=== PATIENT | male | born 1980 | race African-American/Black ===

== ENCOUNTER 2022-11-06 13:46 | Inpatient (IN) | payer OTHER ==
[2022-11-06 14:50] VITALS: BMI 28.1
[2022-11-06] MEDS ORDERED: BISMUTH SUBSALICYLATE 524 MG/30 ML PO PRN (17:29)
[2022-11-06] MEDS ORDERED: ACETAMINOPHEN 325 MG TABLET (FP) PO PRN (17:29)
[2022-11-06] MEDS ORDERED: IBUPROFEN 400 MG TABLET (FP) PO PRN (17:29)
[2022-11-06] MEDS ORDERED: BENZONATATE 200 MG CAPSULE PO PRN (17:29)
[2022-11-06] MEDS ORDERED: IBUPROFEN 600 MG TABLET (FP) PO PRN (17:29)
[2022-11-06] MEDS ORDERED: MAG HYDROX/AL HYDROX/SIMETH 30 ML UNIT-DOSE CUP PO PRN (17:29)
[2022-11-06] MEDS ORDERED: DICYCLOMINE HCL 10 MG CAPSULE PO PRN (17:29)
[2022-11-06] MEDS ORDERED: P-EPHED 60MG/TRIPROLIDI 2.5MG TABLET PO PRN (17:29)
[2022-11-06] MEDS ORDERED: BENZOCAINE/MENTHOL (CHLORASEPTIC ) LOZENGE MM PRN (17:29)
[2022-11-06] MEDS ORDERED: POLYETHYLENE GLYCOL (HEALTHYLAX) 3350 17 GM PACKET PO PRN (17:29)
[2022-11-06] MEDS ORDERED: guaiFENesin 600 MG TABLET.ER (FP) PO PRN (17:29)
[2022-11-06] MEDS ORDERED: NICOTINE POLACRILEX 2 MG GUM BUC PRN (17:29)
[2022-11-06] MEDS ORDERED: LOPERAMIDE HCL 2 MG CAPSULE PO PRN (17:29)
[2022-11-06] MEDS ORDERED: ONDANSETRON *ODT* 4 MG TABLET SL PRN (17:29)
[2022-11-06] MEDS ORDERED: MAGNESIUM HYDROX 2400MG/30ML ORAL SUSPENSION 30 ML CUP PO PRN (17:29)
[2022-11-06] MEDS ORDERED: cloNIDine HCL 0.1 MG TABLET PO ONE (18:29)
[2022-11-06] MEDS ORDERED: cloNIDine HCL 0.1 MG TABLET ONE (18:31)
[2022-11-06] MEDS: MELATONIN 5 MG TABLETS PO SCH (22:10)
[2022-11-06] MEDS: METHOCARBAMOL 500 MG TABLET PO PRN (22:10)
[2022-11-06] MEDS: hydrOXYzine PAMOATE 25 MG CAPSULE (FP) PO PRN (22:10)
[2022-11-06] MEDS: THIAMINE HCL 100 MG TABLET (FP) PO SCH (22:10)
[2022-11-07] MEDS ORDERED: chlordiazePOXIDE HCL 25 MG CAPSULE PO PRN (08:12)
[2022-11-07] MEDS: METHOCARBAMOL 500 MG TABLET PO PRN (10:07)
[2022-11-07] MEDS: PRENATAL VITAMINS W/ FOLIC ACID TABLET (FP) PO SCH (10:07)
[2022-11-07] MEDS: cloNIDine HCL 0.1 MG TABLET PO PRN ×2 (10:07→22:03)
[2022-11-07] MEDS: chlordiazePOXIDE HCL 25 MG CAPSULE PO SCH ×3 (10:07→22:03)
[2022-11-07] MEDS: hydrOXYzine PAMOATE 25 MG CAPSULE (FP) PO PRN (10:07)
[2022-11-07 11:40] LABS: POTASSIUM 3.5 mmol/L (3.5-5.1)
[2022-11-07 11:41] LABS: HEMOGLOBIN 14.3 GM/dL (11.7-16.9); MCH 31.5 pg (25.7-33.7); MCHC 33.2 g/dl (32.0-35.9); MEAN PLT VOLUME 9.4 fl (7.5-11.1); PLATELET COUNT 175 10^3/uL (134-434); RBC 4.53 M/mm3 (4.00-5.60); RDW 14.5 % (11.9-15.9); WHITE BLOOD COUNT 5.9 K/mm3 (4.0-10.0)
[2022-11-07 12:20] LABS: ALBUMIN 3.4 g/dl (3.4-5.0); BLOOD UREA NITROGEN 12.9 mg/dL (7-18); CALCIUM 9.1 mg/dL (8.5-10.1)
[2022-11-07 12:22] LABS: CREATININE 0.8 mg/dL (0.55-1.3)
[2022-11-07 12:24] LABS: BILIRUBIN,TOTAL 0.8 mg/dL (0.2-1); TOT PROT 6.7 g/dl (6.4-8.2)
[2022-11-07] MEDS: THIAMINE HCL 100 MG TABLET (FP) PO SCH (22:03)
[2022-11-07] MEDS: MELATONIN 5 MG TABLETS PO SCH (22:04)
[2022-11-08] MEDS: chlordiazePOXIDE HCL 25 MG CAPSULE PO SCH ×4 (05:26→22:27)
[2022-11-08] MEDS: PRENATAL VITAMINS W/ FOLIC ACID TABLET (FP) PO SCH (10:16)
[2022-11-08] MEDS: METHOCARBAMOL 500 MG TABLET PO PRN (10:16)
[2022-11-08] MEDS: hydrOXYzine PAMOATE 25 MG CAPSULE (FP) PO PRN ×2 (10:16→22:30)
[2022-11-08] MEDS: THIAMINE HCL 100 MG TABLET (FP) PO SCH (22:27)
[2022-11-08] MEDS: MELATONIN 5 MG TABLETS PO SCH (22:27)
[2022-11-08] MEDS: cloNIDine HCL 0.1 MG TABLET PO PRN (22:27)
[2022-11-09] MEDS: chlordiazePOXIDE HCL 25 MG CAPSULE PO SCH ×4 (05:59→22:31)
[2022-11-09] MEDS: PRENATAL VITAMINS W/ FOLIC ACID TABLET (FP) PO SCH (10:32)
[2022-11-09] MEDS: cloNIDine HCL 0.1 MG TABLET PO PRN (21:31)
[2022-11-09] MEDS: hydrOXYzine PAMOATE 25 MG CAPSULE (FP) PO PRN (22:31)
[2022-11-09] MEDS: THIAMINE HCL 100 MG TABLET (FP) PO SCH (22:31)
[2022-11-09] MEDS: MELATONIN 5 MG TABLETS PO SCH (22:33)
[2022-11-10] MEDS: chlordiazePOXIDE HCL 10 MG CAPSULE PO SCH ×4 (05:16→22:30)
[2022-11-10] MEDS: chlordiazePOXIDE HCL 10 MG CAPSULE PO PRN ×2 (06:06→12:42)
[2022-11-10] MEDS: PRENATAL VITAMINS W/ FOLIC ACID TABLET (FP) PO SCH (10:52)
[2022-11-10] MEDS: METHOCARBAMOL 500 MG TABLET PO PRN (22:30)
[2022-11-10] MEDS: THIAMINE HCL 100 MG TABLET (FP) PO SCH (22:30)
[2022-11-10] MEDS: MELATONIN 5 MG TABLETS PO SCH (22:30)
[2022-11-11] MEDS: chlordiazePOXIDE HCL 10 MG CAPSULE PO SCH ×2 (05:53→17:32)
[2022-11-11] MEDS: PRENATAL VITAMINS W/ FOLIC ACID TABLET (FP) PO SCH (10:44)
[2022-11-11] MEDS: cloNIDine HCL 0.1 MG TABLET PO PRN (14:33)
[2022-11-11] MEDS: MELATONIN 5 MG TABLETS PO SCH (23:00)
[2022-11-11] MEDS: THIAMINE HCL 100 MG TABLET (FP) PO SCH (23:00)
[2022-11-12] MEDS: hydrOXYzine PAMOATE 25 MG CAPSULE (FP) PO PRN (00:21)
[2022-11-12] MEDS ORDERED: chlordiazePOXIDE HCL 10 MG CAPSULE PO ONE (05:00)
[2022-11-12 06:13] VITALS: BP 126/78; PULSE 88; RESP 16; TEMP 97.5
[2022-11-12] MEDS: PRENATAL VITAMINS W/ FOLIC ACID TABLET (FP) PO SCH (10:35)
== END 2022-11-12 09:15 | disposition home or self-care (01) | DRG 775 ==
LOC: YASAS 13:46 → Y6N 18:35
PROVIDERS: ADMIT Allergy & Immunology; ATTEND Allergy & Immunology
PROC: HZ2ZZZZ Detoxification Services for Substance Abuse Treatment (ICD-10-PCS; principal; 2022-11-06)
DX: F10.230 Alcohol dependence with withdrawal, uncomplicated (principal); F17.210 Nicotine dependence, cigarettes, uncomplicated
CPT/HCPCS: 36415; 80053; 85027; 86780; 87635

== ENCOUNTER 2023-02-11 12:36 | Inpatient (IN) | payer OTHER ==
[2023-02-11 12:56] VITALS: RESP 18; BMI 30.4
[2023-02-11] MEDS ORDERED: LOPERAMIDE HCL 2 MG CAPSULE PO PRN (14:03)
[2023-02-11] MEDS ORDERED: BENZOCAINE/MENTHOL (CHLORASEPTIC ) LOZENGE MM PRN (14:03)
[2023-02-11] MEDS ORDERED: MAGNESIUM HYDROX 2400MG/30ML ORAL SUSPENSION 30 ML CUP PO PRN (14:03)
[2023-02-11] MEDS ORDERED: COLLOIDAL OATMEAL 1 BAR EACH TP PRN (14:03)
[2023-02-11] MEDS ORDERED: NALOXONE HCL (KLOXXADO) 8 MG SPRAY NS PRN (14:03)
[2023-02-11] MEDS ORDERED: NALOXONE HCL 0.4 MG/ML VIAL IM PRN (14:03)
[2023-02-11] MEDS ORDERED: IBUPROFEN 600 MG TABLET (FP) PO PRN (14:03)
[2023-02-11] MEDS ORDERED: guaiFENesin 600 MG TABLET.ER (FP) PO PRN (14:03)
[2023-02-11] MEDS ORDERED: BENZONATATE 200 MG CAPSULE PO PRN (14:03)
[2023-02-11] MEDS ORDERED: NICOTINE POLACRILEX 2 MG GUM BUC PRN (14:03)
[2023-02-11] MEDS ORDERED: MAG HYDROX/AL HYDROX/SIMETH 30 ML UNIT-DOSE CUP PO PRN (14:03)
[2023-02-11] MEDS ORDERED: POLYETHYLENE GLYCOL (HEALTHYLAX) 3350 17 GM PACKET PO PRN (14:03)
[2023-02-11] MEDS ORDERED: IBUPROFEN 400 MG TABLET (FP) PO PRN (14:03)
[2023-02-11] MEDS ORDERED: ACETAMINOPHEN 325 MG TABLET (FP) PO PRN (14:03)
[2023-02-11] MEDS: MELATONIN 5 MG TABLETS PO SCH (21:39)
[2023-02-11] MEDS: THIAMINE HCL 100 MG TABLET (FP) PO SCH (21:40)
[2023-02-12] MEDS: NICOTINE 14 MG/24 HOURS TOPICAL PATCH TD SCH (10:21)
[2023-02-12] MEDS: PRENATAL VITAMINS W/ FOLIC ACID TABLET (FP) PO SCH (10:21)
[2023-02-12 10:52] LABS: HEMATOCRIT 43.4 % (35.4-49); HEMOGLOBIN 14.4 GM/dL (11.7-16.9); MCH 31.7 pg (25.7-33.7); MCHC 33.2 g/dl (32.0-35.9); MEAN CELL VOLUME 95.4 fl (80-96); PLATELET COUNT 225 10^3/uL (134-434); RBC 4.55 M/mm3 (4.00-5.60); RDW 13.3 % (11.9-15.9); WHITE BLOOD COUNT 6.5 K/mm3 (4.0-10.0)
[2023-02-12 10:55] LABS: CHLORIDE 104 mmol/L (98-107); POTASSIUM 4.5 mmol/L (3.5-5.1); SODIUM 140 mmol/L (136-145)
[2023-02-12 11:01] LABS: PH,URINE 6.5 (5.0-8.0); URINE APPEARANCE CLEAR; URINE BILIRUBIN NEGATIVE (NEGATIVE); URINE COLOR YELLOW; URINE GLUCOSE (UA) NEGATIVE (NEGATIVE); URINE KETONE NEGATIVE (NEGATIVE); URINE LEUK ESTERASE NEGATIVE (NEGATIVE); URINE NITRITE NEGATIVE (NEGATIVE); URINE PROTEIN NEGATIVE (NEGATIVE); URINE UROBILINOGEN 0.2 mg/dL (0.2-1.0)
[2023-02-12 11:10] LABS: CALCIUM 9.4 mg/dL (8.5-10.1)
[2023-02-12 11:11] LABS: ALBUMIN 3.4 g/dl (3.4-5.0); ANION GAP 8 mmol/L (4-13); BLOOD UREA NITROGEN 17.3 mg/dL (7-18); CO2 28 mmol/L (21-32); GLUCOSE,RANDOM 104 mg/dL (74-106)
[2023-02-12 11:14] LABS: SGOT/AST 18 U/L (15-37); SGPT/ALT 37 U/L (13-61)
[2023-02-12 11:15] LABS: CREATININE 0.8 mg/dL (0.55-1.3)
[2023-02-12 11:16] LABS: BILIRUBIN,TOTAL 0.3 mg/dL (0.2-1); TOT PROT 6.9 g/dl (6.4-8.2)
[2023-02-12 11:17] LABS: ALK PHOS 75 U/L (45-117)
[2023-02-12] MEDS: hydrOXYzine PAMOATE 25 MG CAPSULE (FP) PO PRN (11:29)
[2023-02-12] MEDS: MELATONIN 5 MG TABLETS PO SCH (21:39)
[2023-02-12] MEDS: traZODone HCL 100 MG TABLET (FP) PO SCH (21:39)
[2023-02-12] MEDS: THIAMINE HCL 100 MG TABLET (FP) PO SCH (21:40)
[2023-02-13] MEDS: PRENATAL VITAMINS W/ FOLIC ACID TABLET (FP) PO SCH (10:03)
[2023-02-13] MEDS: NICOTINE 14 MG/24 HOURS TOPICAL PATCH TD SCH (10:03)
[2023-02-13] MEDS: hydrOXYzine PAMOATE 25 MG CAPSULE (FP) PO PRN (11:18)
[2023-02-13] MEDS: traZODone HCL 100 MG TABLET (FP) PO SCH (21:22)
[2023-02-13] MEDS: MELATONIN 5 MG TABLETS PO SCH (21:22)
[2023-02-13] MEDS: THIAMINE HCL 100 MG TABLET (FP) PO SCH (21:22)
[2023-02-14] MEDS: PRENATAL VITAMINS W/ FOLIC ACID TABLET (FP) PO SCH (10:05)
[2023-02-14] MEDS: hydrOXYzine PAMOATE 25 MG CAPSULE (FP) PO PRN (10:06)
[2023-02-14] MEDS: traZODone HCL 100 MG TABLET (FP) PO SCH (21:15)
[2023-02-14] MEDS: THIAMINE HCL 100 MG TABLET (FP) PO SCH (21:15)
[2023-02-14] MEDS: MELATONIN 5 MG TABLETS PO SCH (21:15)
[2023-02-15] MEDS: PRENATAL VITAMINS W/ FOLIC ACID TABLET (FP) PO SCH (10:00)
[2023-02-15] MEDS: hydrOXYzine PAMOATE 25 MG CAPSULE (FP) PO PRN ×2 (12:14→21:39)
[2023-02-15] MEDS: MELATONIN 5 MG TABLETS PO SCH (21:38)
[2023-02-15] MEDS: THIAMINE HCL 100 MG TABLET (FP) PO SCH (21:38)
[2023-02-15] MEDS: traZODone HCL 100 MG TABLET (FP) PO SCH (21:38)
[2023-02-16] MEDS: PRENATAL VITAMINS W/ FOLIC ACID TABLET (FP) PO SCH (10:28)
[2023-02-16] MEDS: traZODone HCL 100 MG TABLET (FP) PO SCH (21:47)
[2023-02-16] MEDS: THIAMINE HCL 100 MG TABLET (FP) PO SCH (21:47)
[2023-02-16] MEDS: MELATONIN 5 MG TABLETS PO SCH (21:47)
[2023-02-16] MEDS: hydrOXYzine PAMOATE 25 MG CAPSULE (FP) PO PRN (21:47)
[2023-02-17] MEDS: PRENATAL VITAMINS W/ FOLIC ACID TABLET (FP) PO SCH (10:37)
[2023-02-17] MEDS: THIAMINE HCL 100 MG TABLET (FP) PO SCH (22:04)
[2023-02-17] MEDS: traZODone HCL 100 MG TABLET (FP) PO SCH (22:04)
[2023-02-17] MEDS: hydrOXYzine PAMOATE 25 MG CAPSULE (FP) PO PRN (22:05)
[2023-02-17] MEDS: MELATONIN 5 MG TABLETS PO SCH (22:05)
[2023-02-18] MEDS: PRENATAL VITAMINS W/ FOLIC ACID TABLET (FP) PO SCH (10:57)
[2023-02-18] MEDS: THIAMINE HCL 100 MG TABLET (FP) PO SCH (21:38)
[2023-02-18] MEDS: traZODone HCL 100 MG TABLET (FP) PO SCH (21:38)
[2023-02-18] MEDS: MELATONIN 5 MG TABLETS PO SCH (21:38)
[2023-02-18] MEDS: hydrOXYzine PAMOATE 25 MG CAPSULE (FP) PO PRN (21:38)
[2023-02-19] MEDS: PRENATAL VITAMINS W/ FOLIC ACID TABLET (FP) PO SCH (09:48)
[2023-02-19] MEDS: traZODone HCL 100 MG TABLET (FP) PO SCH (21:27)
[2023-02-19] MEDS: THIAMINE HCL 100 MG TABLET (FP) PO SCH (21:27)
[2023-02-19] MEDS: SUVOREXANT 10 MG TABLET PO PRN (21:28)
[2023-02-19] MEDS: hydrOXYzine PAMOATE 25 MG CAPSULE (FP) PO PRN (21:29)
[2023-02-20] MEDS: PRENATAL VITAMINS W/ FOLIC ACID TABLET (FP) PO SCH (09:30)
[2023-02-20] MEDS: traZODone HCL 100 MG TABLET (FP) PO SCH (21:32)
[2023-02-20] MEDS: hydrOXYzine PAMOATE 25 MG CAPSULE (FP) PO PRN (21:32)
[2023-02-20] MEDS: THIAMINE HCL 100 MG TABLET (FP) PO SCH (21:32)
[2023-02-20] MEDS: SUVOREXANT 10 MG TABLET PO PRN (21:34)
[2023-02-21] MEDS: PRENATAL VITAMINS W/ FOLIC ACID TABLET (FP) PO SCH (10:22)
[2023-02-21] MEDS: THIAMINE HCL 100 MG TABLET (FP) PO SCH (21:52)
[2023-02-21] MEDS: SUVOREXANT 10 MG TABLET PO PRN (21:52)
[2023-02-21] MEDS: traZODone HCL 100 MG TABLET (FP) PO SCH (21:52)
[2023-02-21] MEDS: hydrOXYzine PAMOATE 25 MG CAPSULE (FP) PO PRN (21:53)
[2023-02-22] MEDS: PRENATAL VITAMINS W/ FOLIC ACID TABLET (FP) PO SCH (09:54)
[2023-02-22] MEDS: traZODone HCL 100 MG TABLET (FP) PO SCH (21:34)
[2023-02-22] MEDS: SUVOREXANT 10 MG TABLET PO PRN (21:34)
[2023-02-22] MEDS: hydrOXYzine PAMOATE 25 MG CAPSULE (FP) PO PRN (21:34)
[2023-02-22] MEDS: THIAMINE HCL 100 MG TABLET (FP) PO SCH (21:34)
[2023-02-23] MEDS: PRENATAL VITAMINS W/ FOLIC ACID TABLET (FP) PO SCH (10:12)
[2023-02-23] MEDS: THIAMINE HCL 100 MG TABLET (FP) PO SCH (21:35)
[2023-02-23] MEDS: traZODone HCL 100 MG TABLET (FP) PO SCH (21:35)
[2023-02-23] MEDS: hydrOXYzine PAMOATE 25 MG CAPSULE (FP) PO PRN (21:37)
[2023-02-23] MEDS: SUVOREXANT 10 MG TABLET PO PRN (21:37)
[2023-02-24] MEDS: PRENATAL VITAMINS W/ FOLIC ACID TABLET (FP) PO SCH (10:17)
[2023-02-24] MEDS: hydrOXYzine PAMOATE 25 MG CAPSULE (FP) PO PRN (21:30)
[2023-02-24] MEDS: traZODone HCL 100 MG TABLET (FP) PO SCH (21:30)
[2023-02-24] MEDS: THIAMINE HCL 100 MG TABLET (FP) PO SCH (21:30)
[2023-02-24] MEDS: SUVOREXANT 10 MG TABLET PO PRN (21:31)
[2023-02-25] MEDS: PRENATAL VITAMINS W/ FOLIC ACID TABLET (FP) PO SCH (10:01)
[2023-02-25] MEDS: hydrOXYzine PAMOATE 25 MG CAPSULE (FP) PO PRN (21:24)
[2023-02-25] MEDS: THIAMINE HCL 100 MG TABLET (FP) PO SCH (21:24)
[2023-02-25] MEDS: traZODone HCL 100 MG TABLET (FP) PO SCH (21:24)
[2023-02-25] MEDS: SUVOREXANT 10 MG TABLET PO PRN (21:25)
[2023-02-26] MEDS: PRENATAL VITAMINS W/ FOLIC ACID TABLET (FP) PO SCH (09:42)
[2023-02-26] MEDS: hydrOXYzine PAMOATE 25 MG CAPSULE (FP) PO PRN ×2 (09:43→21:33)
[2023-02-26] MEDS: traZODone HCL 100 MG TABLET (FP) PO SCH (21:33)
[2023-02-26] MEDS: THIAMINE HCL 100 MG TABLET (FP) PO SCH (21:33)
[2023-02-26] MEDS: SUVOREXANT 10 MG TABLET PO PRN (21:34)
[2023-02-27 07:05] VITALS: BP 129/92; PULSE 80; TEMP 97.3
== END 2023-02-27 08:57 | disposition home or self-care (01) | DRG 772 ==
LOC: YASAS 12:36 → Y5N 16:12
PROVIDERS: ADMIT Allergy & Immunology; ATTEND Psychiatry & Neurology Pain Medicine
PROC: HZ42ZZZ Group Counseling for Substance Abuse Treatment, Cognitive-Behavioral (ICD-10-PCS; principal; 2023-02-11)
DX: F10.20 Alcohol dependence, uncomplicated (principal); F15.20 Other stimulant dependence, uncomplicated; F17.210 Nicotine dependence, cigarettes, uncomplicated; F31.9 Bipolar disorder, unspecified; F19.282 Other psychoactive substance dependence with psychoactive substance-induced sleep disorder; F19.24 Other psychoactive substance dependence with psychoactive substance-induced mood disorder; F41.9 Anxiety disorder, unspecified; F43.10 Post-traumatic stress disorder, unspecified; I10 Essential (primary) hypertension
CPT/HCPCS: 36415; 80053; 80307; 81003; 85027; 86780; 87635

== ENCOUNTER 2023-10-16 11:45 | Inpatient (IN) | payer OTHER ==
[2023-10-16 12:13] VITALS: BMI 30.2
[2023-10-16] MEDS ORDERED: MAG HYDROX/AL HYDROX/SIMETH 30 ML UNIT-DOSE CUP PO PRN (12:33)
[2023-10-16] MEDS ORDERED: IBUPROFEN 400 MG TABLET (FP) PO PRN (12:33)
[2023-10-16] MEDS ORDERED: ACETAMINOPHEN 325 MG TABLET (FP) PO PRN (12:33)
[2023-10-16] MEDS ORDERED: NICOTINE POLACRILEX 2 MG LOZENGE BC PRN (12:33)
[2023-10-16] MEDS ORDERED: P-EPHED 60MG/TRIPROLIDI 2.5MG TABLET PO PRN (12:33)
[2023-10-16] MEDS ORDERED: BENZOCAINE/MENTHOL (CHLORASEPTIC ) LOZENGE MM PRN (12:33)
[2023-10-16] MEDS ORDERED: POLYETHYLENE GLYCOL (HEALTHYLAX) 3350 17 GM PACKET PO PRN (12:33)
[2023-10-16] MEDS ORDERED: guaiFENesin 600 MG TABLET.ER (FP) PO PRN (12:33)
[2023-10-16] MEDS ORDERED: BENZONATATE 200 MG CAPSULE PO PRN (12:33)
[2023-10-16] MEDS ORDERED: NICOTINE POLACRILEX 2 MG GUM BUC PRN (12:33)
[2023-10-16] MEDS ORDERED: MAGNESIUM HYDROX 2400MG/30ML ORAL SUSPENSION 30 ML CUP PO PRN (12:33)
[2023-10-16] MEDS ORDERED: LOPERAMIDE HCL 2 MG CAPSULE PO PRN (12:33)
[2023-10-16] MEDS ORDERED: DOCUSATE SODIUM 100 MG CAPSULE (FP) PO PRN (12:33)
[2023-10-16] MEDS ORDERED: IBUPROFEN 600 MG TABLET (FP) PO PRN (12:33)
[2023-10-16] MEDS: MELATONIN 5 MG TABLETS PO SCH (21:34)
[2023-10-16] MEDS: THIAMINE 100 MG TABLET PO SCH (21:34)
[2023-10-17] MEDS: PRENATAL VITAMINS W/ FOLIC ACID TABLET (FP) PO SCH (09:31)
[2023-10-17 11:52] LABS: HEMATOCRIT 43.5 % (35.4-49); HEMOGLOBIN 14.6 GM/dL (11.7-16.9); MCH 31.4 pg (25.7-33.7); MCHC 33.5 g/dl (32.0-35.9); MEAN CELL VOLUME 93.5 fl (80-96); MEAN PLT VOLUME 10.8 fl (7.5-11.1); PLATELET COUNT 173 10^3/uL (134-434); RBC 4.65 M/mm3 (4.00-5.60); RDW 13.8 % (11.9-15.9); WHITE BLOOD COUNT 5.5 K/mm3 (4.0-10.0)
[2023-10-17 11:56] LABS: POTASSIUM 3.7 mmol/L (3.5-5.1)
[2023-10-17 12:01] LABS: ALBUMIN 3.1 g/dl (3.4-5.0); BLOOD UREA NITROGEN 15.8 mg/dL (7-18)
[2023-10-17 12:04] LABS: CREATININE 0.7 mg/dL (0.55-1.3)
[2023-10-17 12:05] LABS: TOT PROT 6.6 g/dl (6.4-8.2)
[2023-10-17 12:06] LABS: BILIRUBIN,TOTAL 0.2 mg/dL (0.2-1)
[2023-10-17 12:59] LABS: CALCIUM 9.5 mg/dL (8.5-10.1)
[2023-10-17] MEDS: QUEtiapine FUMARATE 100 MG TABLET (FP) PO SCH (23:21)
[2023-10-19] MEDS: QUEtiapine FUMARATE 50 MG TABLET PO SCH (21:47)
[2023-10-19] MEDS: hydrOXYzine PAMOATE 50 MG CAPSULE (FP) PO PRN (21:47)
[2023-10-20 11:09] VITALS: RESP 16; TEMP 96.6
[2023-10-21 13:29] VITALS: BP 125/84; PULSE 88
[2023-10-21 22:00] LABS: URINE APPEARANCE TURBID; URINE BILIRUBIN NEGATIVE (NEGATIVE); URINE COLOR YELLOW; URINE GLUCOSE (UA) NEGATIVE (NEGATIVE); URINE KETONE NEGATIVE (NEGATIVE); URINE LEUK ESTERASE NEGATIVE (NEGATIVE); URINE NITRITE NEGATIVE (NEGATIVE); URINE PROTEIN NEGATIVE (NEGATIVE); URINE UROBILINOGEN 0.2 mg/dL (0.2-1.0)
== END 2023-10-22 15:46 | disposition left against medical advice (07) | DRG 772 ==
LOC: YASAS 11:45 → Y3NR 13:55 → Y3W 10-17 12:09 → Y3E 10-18 14:07
PROVIDERS: ADMIT Allergy & Immunology; ATTEND Psychiatry & Neurology Pain Medicine
PROC: HZ42ZZZ Group Counseling for Substance Abuse Treatment, Cognitive-Behavioral (ICD-10-PCS; principal; 2023-10-16)
DX: F10.20 Alcohol dependence, uncomplicated (principal); F15.20 Other stimulant dependence, uncomplicated; F12.20 Cannabis dependence, uncomplicated; F17.210 Nicotine dependence, cigarettes, uncomplicated; F19.282 Other psychoactive substance dependence with psychoactive substance-induced sleep disorder; F19.280 Other psychoactive substance dependence with psychoactive substance-induced anxiety disorder; F19.24 Other psychoactive substance dependence with psychoactive substance-induced mood disorder; F31.9 Bipolar disorder, unspecified; G47.00 Insomnia, unspecified; I10 Essential (primary) hypertension; F91.8 Other conduct disorders; Z91.199 Patient's noncompliance with other medical treatment and regimen due to unspecified reason; Z86.59 Personal history of other mental and behavioral disorders; Z59.02 Unsheltered homelessness
CPT/HCPCS: 36415; 80053; 80305; 80307; 81003; 85027; 86780; 87811; 93005; 93010